=== PATIENT | male | born 1985 | race Native Hawaiian/Other Pacific Islander ===

== ENCOUNTER 2020-03-22 14:37 | Emergency (ER) | payer OTHER ==
[~2020-03-22] VITALS: Ht 180.3 cm; Wt 96.2 kg
[2020-03-22 15:25] LABS: PLATELET COUNT 291 K/uL (142-355)
[2020-03-22 15:35] LABS: POTASSIUM 3.8 mmol/L (3.6-5.2)
[2020-03-22 16:45] VITALS: BP 152/98; TEMP 98.7
== END 2020-03-22 16:45 | disposition home or self-care (01) ==
LOC: ED 14:37
DX: N39.0 Urinary tract infection, site not specified (principal); N20.0 Calculus of kidney
CPT/HCPCS: 36415; 80053; 81000; 82150; 83690; 85027; 86318; 87088; 96372; 99283; J1885